=== PATIENT | female | born 2000 | race Caucasian/White ===

== ENCOUNTER 2020-08-12 16:45 | Emergency (ER) | payer MEDICAID, SELFPAY ==
[~2020-08-12] VITALS: Ht 172.7 cm; Wt 117.3 kg
[2020-08-12 17:53] LABS: HEMOGLOBIN 13.4 g/dl (12.0-15.5); MEAN CORPUSCULAR HEMOGLOBIN 27.6 pg (27.0-33.0); MEAN CORPUSCULAR HGB CONC 31.9 g/dl (32.0-36.5); MEAN CORPUSCULAR VOLUME 86.6 fl (80.0-96.0); PLATELET COUNT, AUTOMATED 291 10^3/uL (150-450); RED BLOOD COUNT 4.85 10^6/uL (4.00-5.40); WHITE BLOOD COUNT 9.9 10^3/uL (4.0-10.0)
[2020-08-12 18:23] LABS: AMPHETAMINES LEVEL URINE NEGATIVE (NEGATIVE); BARBITURATES URINE NEGATIVE (NEGATIVE); BENZODIAZEPINES URINE NEGATIVE (NEGATIVE); CANNABINOIDS URINE NEGATIVE (NEGATIVE); COCAINE METABOLITE URINE NEGATIVE (NEGATIVE); METHADONE URINE NEGATIVE (NEGATIVE); OPIATES URINE NEGATIVE (NEGATIVE); PHENCYCLIDINE URINE NEGATIVE (NEGATIVE)
[2020-08-12 18:24] LABS: HCG, SERUM QUALITATIVE NEGATIVE (NEGATIVE)
[2020-08-12 18:36] LABS: ACETAMINOPHEN LEVEL < 2.0 UG/ML (10.0-30.0); ALBUMIN 4.2 GM/DL (3.2-5.2); ALT/SGPT 23 U/L (12-78); BILIRUBIN,DIRECT < 0.1 MG/DL (0.0-0.2); BILIRUBIN,TOTAL 0.3 MG/DL (0.2-1.0); BLOOD UREA NITROGEN 16 MG/DL (7-18); CALCIUM LEVEL 9.1 MG/DL (8.5-10.1); CARBON DIOXIDE LEVEL 30 MEQ/L (21-32); CHLORIDE LEVEL 107 MEQ/L (98-107); CREATININE FOR GFR 1.11 MG/DL (0.55-1.30); ETHYL ALCOHOL (ETHANOL) < 0.003 % (0.000-0.010); GLUCOSE, FASTING 80 MG/DL (70-100); POTASSIUM SERUM 4.4 MEQ/L (3.5-5.1); SALICYLATE LEVEL < 1.7 MG/DL (5.0-30.0); SODIUM LEVEL 142 MEQ/L (136-145); TOTAL PROTEIN 7.8 GM/DL (6.4-8.2)
--- NOTE | 2020-08-12 18:37 | ECGEPIP ---
[facility] - ED Test Date: 2020-08-12 Pat Name: ALANNA SHIPMAN Department: Room: - Gender: Female Newspaper Editor: INNA : 2000 Requested By: LIA TRAN Order Number: [id number] Reading MD: Emily Poe Measurements Intervals [place] Rate: 107 P: 65 ME: 140 QRS: 67 QRSD: 81 T: 30 QT: 316 QTc: 422 Interpretive Statements SINUS TACHYCARDIA ABNORMAL RHYTHM ECG No prior Electronically Signed on 08-12-2020 18:37:05 EST by Emily Poe
[2020-08-13 00:19] VITALS: BP 139/82
== END 2020-08-13 00:25 | disposition short-term general hospital (02) ==
LOC: M ED 16:45
DX: F32.9 Major depressive disorder, single episode, unspecified (principal); R45.851 Suicidal ideations; R00.0 Tachycardia, unspecified; R94.31 Abnormal electrocardiogram [ECG] [EKG]
CPT/HCPCS: 80048; 80076; 80307; 84443; 84703; 85027; 93005; 99284; G0480; U0002

== ENCOUNTER → 2020-11-20 | Outpatient (REF) | LOC: M EMPSKH 08:15 | PROVIDERS: ATTEND Family Medicine | DX: Z20.822 Contact with and (suspected) exposure to COVID-19 (principal) ==

== ENCOUNTER → 2022-04-18 | Outpatient (REF) | LOC: M EMP 08:01 | PROVIDERS: ATTEND Family Medicine | DX: Z11.52 Encounter for screening for COVID-19 (principal) ==

== ENCOUNTER → 2022-09-05 | Outpatient (REF) ==
[2022-09-05 15:52] LABS: RSV AMPLIFICATION NEGATIVE (NEGATIVE)
== END ==
LOC: M EMP 13:25
PROVIDERS: ATTEND Family Medicine
DX: Z20.818 Contact with and (suspected) exposure to other bacterial communicable diseases (principal)

== ENCOUNTER 2023-12-14 15:06 | Emergency (ER) | payer OTHER, SELFPAY ==
[~2023-12-14] VITALS: Ht 172.7 cm; Wt 84.3 kg
[2023-12-14] MEDS: KETOROLAC 60MG 2ML VIAL IM ONE (16:44)
[2023-12-14] MEDS ORDERED: IBUP-1022 PO (16:58)
[2023-12-14 17:09] VITALS: BP 123/79; TEMP 97.9; O2SAT 99
== END 2023-12-14 17:18 | disposition home or self-care (01) ==
LOC: M ED 15:06
DX: S23.41XA Sprain of ribs, initial encounter (principal); X50.9XXA Other and unspecified overexertion or strenuous movements or postures, initial encounter; Y92.129 Unspecified place in nursing home as the place of occurrence of the external cause; Y93.89 Activity, other specified; Y99.0 Civilian activity done for income or pay; K21.9 Gastro-esophageal reflux disease without esophagitis; F17.290 Nicotine dependence, other tobacco product, uncomplicated
CPT/HCPCS: 71101; 96372; 99283; J1885

== ENCOUNTER 2023-12-23 09:45 | Emergency (ER) | payer OTHER, SELFPAY ==
[~2023-12-23] VITALS: Ht 172.7 cm; Wt 86.8 kg
[~2023-12-23 09:45] MED LIST: IBUP-1022 PO
[2023-12-23] MEDS ORDERED: CYCL-707 PO (14:23)
[2023-12-23] MEDS ORDERED: PRED20TA PO (14:23)
[2023-12-23 15:05] VITALS: BP 126/78; TEMP 97.8; O2SAT 100
== END 2023-12-23 15:06 | disposition home or self-care (01) ==
LOC: M ED 14:02
DX: S23.41XA Sprain of ribs, initial encounter (principal); K21.9 Gastro-esophageal reflux disease without esophagitis; Z79.1 Long term (current) use of non-steroidal anti-inflammatories (NSAID); Z79.52 Long term (current) use of systemic steroids; Y92.9 Unspecified place or not applicable; Y93.9 Activity, unspecified; Y99.9 Unspecified external cause status

== ENCOUNTER 2023-12-25 16:50 | Emergency (ER) | payer OTHER ==
[~2023-12-25] VITALS: Ht 172.7 cm; Wt 88.5 kg
[~2023-12-25 16:50] MED LIST changes: +CYCL-707 PO; +PRED20TA PO
[2023-12-25 16:51] VITALS: BP 143/85; TEMP 99.8; O2SAT 99
[2023-12-25 17:56] LABS: BASO % 0.3 % (0.0-1.0); EOS # 0.1 10^3/uL (0.0-0.5); HEMATOCRIT 35.7 % (36.0-47.0); HEMOGLOBIN 11.8 g/dl (12.0-15.5); LYMPH # 1.4 10^3/uL (1.5-5.0); LYMPH % 14.7 % (24.0-44.0); MEAN CORPUSCULAR HEMOGLOBIN 29.2 pg (27.0-33.0); MEAN CORPUSCULAR HGB CONC 33.1 g/dl (32.0-36.5); MEAN CORPUSCULAR VOLUME 88.4 fl (80.0-96.0); MONO # 0.5 10^3/uL (0.0-0.8); MONO % 5.1 % (2.0-8.0); NEUTROPHILS # 7.3 10^3/uL (1.5-8.5); NEUTROPHILS % 78.7 % (36.0-66.0); PLATELET COUNT, AUTOMATED 203 10^3/uL (150-450); RED BLOOD COUNT 4.04 10^6/uL (4.00-5.40); WHITE BLOOD COUNT 9.3 10^3/uL (4.0-10.0)
[2023-12-25 18:26] LABS: LIPASE 28 U/L (12-53)
[2023-12-25 18:28] LABS: ALBUMIN 3.5 G/DL (3.2-5.2); ALKALINE PHOSPHATASE 56 U/L (46-116); ALT/SGPT 21 U/L (7.0-40); AST/SGOT 13 U/L (<34); BILIRUBIN,DIRECT 0.1 MG/DL (<0.4); BILIRUBIN,TOTAL 0.3 MG/DL (0.3-1.2); BLOOD UREA NITROGEN 16 MG/DL (9-23); CARBON DIOXIDE LEVEL 26 MMOL/L (20-31); CHLORIDE LEVEL 111 MMOL/L (98-107); CPK CREATINE PHOSPHOKINASE 62 U/L (34-145); CREATININE FOR GFR 0.77 MG/DL (0.55-1.30); GLOMERULAR FILTRATION RATE > 60.0 (>60); GLUCOSE, FASTING 93 MG/DL (60-100); SODIUM LEVEL 144 MMOL/L (136-145); TOTAL PROTEIN 6.3 G/DL (5.7-8.2)
[2023-12-25 18:29] LABS: CK-MB VALUE MASS < 1.0 NG/ML (<3.6); MB/CK RELATIVE INDEX 1.61 (< OR =4)
[2023-12-25 18:32] LABS: HCG, SERUM QUALITATIVE NEGATIVE (NEGATIVE)
[2023-12-25] MEDS: HYOSCYAMINE SULFATE 0.125 MG SUBL TABLET PO ONE (21:17)
[2023-12-25] MEDS: MAALOX 30 ML SUSP *UDC PO ONE (21:18)
[2023-12-25] MEDS ORDERED: OMEP40CA4 PO (22:16)
== END 2023-12-25 22:29 | disposition home or self-care (01) ==
LOC: M ED 16:50
DX: R10.10 Upper abdominal pain, unspecified (principal); K21.9 Gastro-esophageal reflux disease without esophagitis; F17.200 Nicotine dependence, unspecified, uncomplicated; Z79.83 Long term (current) use of bisphosphonates; Z79.52 Long term (current) use of systemic steroids; Z79.891 Long term (current) use of opiate analgesic; Z79.1 Long term (current) use of non-steroidal anti-inflammatories (NSAID)

== ENCOUNTER 2024-02-15 17:48 | Emergency (ER) | payer OTHER ==
[~2024-02-15] VITALS: Ht 172.7 cm; Wt 89.7 kg
[~2024-02-15 17:48] MED LIST changes: +OMEP40CA4 PO
[2024-02-15] MEDS ORDERED: PANT20TA6 (18:08)
[2024-02-15] MEDS: ACETAMINOPHEN *IV* 1,000 MG in IV 1 EA IV ONE (19:30)
[2024-02-15 19:58] LABS: BASO # 0.1 10^3/uL (0.0-0.2); BASO % 0.5 % (0.0-1.0); EOS # 0.2 10^3/uL (0.0-0.5); HEMATOCRIT 35.8 % (36.0-47.0); HEMOGLOBIN 11.7 g/dl (12.0-15.5); LYMPH % 31.5 % (24.0-44.0); MEAN CORPUSCULAR HGB CONC 32.7 g/dl (32.0-36.5); MEAN CORPUSCULAR VOLUME 88.8 fl (80.0-96.0); MONO # 0.6 10^3/uL (0.0-0.8); NEUTROPHILS # 5.7 10^3/uL (1.5-8.5); NEUTROPHILS % 59.8 % (36.0-66.0); PLATELET COUNT, AUTOMATED 231 10^3/uL (150-450); RED BLOOD COUNT 4.03 10^6/uL (4.00-5.40); WHITE BLOOD COUNT 9.5 10^3/uL (4.0-10.0)
[2024-02-15 20:22] LABS: CK-MB VALUE MASS < 1.0 NG/ML (<3.6)
[2024-02-15 20:23] LABS: LIPASE 29 U/L (12-53)
[2024-02-15 20:25] LABS: ALBUMIN 3.5 G/DL (3.2-5.2); ALKALINE PHOSPHATASE 52 U/L (46-116); ALT/SGPT 14 U/L (7.0-40); AST/SGOT 11 U/L (<34); BILIRUBIN,DIRECT < 0.1 MG/DL (<0.4); BILIRUBIN,TOTAL 0.2 MG/DL (0.3-1.2); TOTAL PROTEIN 6.2 G/DL (5.7-8.2)
[2024-02-15 20:26] LABS: CPK CREATINE PHOSPHOKINASE 69 U/L (34-145); MB/CK RELATIVE INDEX 1.44 (< OR =4)
[2024-02-15 21:03] LABS: APPEARANCE, URINE HAZY (CLEAR); BACTERIA, URINE AUTO NEGATIVE (NEGATIVE); BILIRUBIN, URINE AUTO NEGATIVE (NEGATIVE); BLOOD, URINE BLOOD NEGATIVE (NEGATIVE); COLOR, URINE YELLOW (YELLOW); GLUCOSE, URINE (UA) AUTO NEGATIVE (NEGATIVE); KETONE, URINE AUTO NEGATIVE (NEGATIVE); LEUKOCYTE ESTERASE, URINE AUTO NEGATIVE (NEGATIVE); MUCUS, URINE SMALL (NEGATIVE); NITRITE, URINE AUTO NEGATIVE (NEGATIVE); PROTEIN, URINE AUTO NEGATIVE (NEGATIVE); RBC, URINE AUTO 0 /HPF (0-3); SPECIFIC GRAVITY URINE AUTO 1.027 (1.002-1.035); SQUAMOUS EPITHELIAL CELL UR AU 2 /HPF (0-6); WBC, URINE AUTO 3 /HPF (0-3)
[2024-02-15] MEDS ORDERED: ISOVUE-370 76% 100ML VIAL As Ordered ONE (21:04)
[2024-02-15] MEDS ORDERED: MIRA3350 PO (22:43)
[2024-02-15 22:47] VITALS: BP 111/56; TEMP 98.1; O2SAT 100
== END 2024-02-15 22:50 | disposition home or self-care (01) ==
LOC: M ED 17:48
DX: R10.9 Unspecified abdominal pain (principal); K59.00 Constipation, unspecified; K21.9 Gastro-esophageal reflux disease without esophagitis; F17.210 Nicotine dependence, cigarettes, uncomplicated; F12.10 Cannabis abuse, uncomplicated; R94.31 Abnormal electrocardiogram [ECG] [EKG]; Z79.1 Long term (current) use of non-steroidal anti-inflammatories (NSAID); Z79.899 Other long term (current) drug therapy
CPT/HCPCS: 36415; 71045; 71275; 74177; 80047; 80076; 81001; 82550; 82553; 83690; 84484; 84702; 85025; 85379; 93005; 96374; 99284; J0131; Q9967

== ENCOUNTER → 2024-06-17 | Outpatient (REF) | payer OTHER ==
[~2024-06-17] MED LIST changes: +MIRA3350 PO; +PANT20TA6
[2024-06-17 17:39] LABS: BASO % 0.3 % (0.0-1.0); EOS # 0.1 10^3/uL (0.0-0.5); EOS % 0.8 % (0.0-3.0); HEMATOCRIT 40.5 % (36.0-47.0); HEMOGLOBIN 13.1 g/dl (12.0-15.5); LYMPH # 4.1 10^3/uL (1.5-5.0); LYMPH % 47.6 % (24.0-44.0); MEAN CORPUSCULAR HEMOGLOBIN 28.9 pg (27.0-33.0); MEAN CORPUSCULAR HGB CONC 32.3 g/dl (32.0-36.5); MEAN CORPUSCULAR VOLUME 89.2 fl (80.0-96.0); MONO # 0.6 10^3/uL (0.0-0.8); MONO % 7.4 % (2.0-8.0); NEUTROPHILS # 3.8 10^3/uL (1.5-8.5); NEUTROPHILS % 43.7 % (36.0-66.0); PLATELET COUNT, AUTOMATED 187 10^3/uL (150-450); RED BLOOD COUNT 4.54 10^6/uL (4.00-5.40); WHITE BLOOD COUNT 8.6 10^3/uL (4.0-10.0)
[2024-06-17 18:03] LABS: ALBUMIN 4.1 G/DL (3.2-5.2); ALKALINE PHOSPHATASE 62 U/L (46-116); ALT/SGPT 14 U/L (7.0-40); AST/SGOT < 8 U/L (<34); BILIRUBIN,TOTAL 0.5 MG/DL (0.3-1.2); BLOOD UREA NITROGEN 16 MG/DL (9-23); CALCIUM LEVEL 9.7 MG/DL (8.5-10.1); CARBON DIOXIDE LEVEL 29 MMOL/L (20-31); CHLORIDE LEVEL 105 MMOL/L (98-107); CHOLESTEROL LEVEL 120 MG/DL (<200); CHOLESTEROL RISK RATIO 2.48 (<5); CREATININE FOR GFR 0.84 MG/DL (0.55-1.30); GLOMERULAR FILTRATION RATE > 60.0 (>60); GLUCOSE, FASTING 80 MG/DL (60-100); HDL CHOLESTEROL 48.2 MG/DL (>40); LDL CHOLESTEROL 55.2 MG/DL (<100); MAGNESIUM LEVEL 1.8 MG/DL (1.8-2.4); NON-HDL-C 71.8 MG/DL; POTASSIUM SERUM 5.1 MMOL/L (3.5-5.1); SODIUM LEVEL 139 MMOL/L (136-145); THYROID STIMULATING HORMONE 7.935 uIU/ML (0.55-4.78); TOTAL 25(OH) VITAMIN D 18.9 NG/ML (20.0-100.0); TOTAL PROTEIN 7.2 G/DL (5.7-8.2); TRIGLYCERIDES LEVEL 83 MG/DL (<150)
[2024-06-17 18:58] LABS: HEMOGLOBIN A1c 4.9 % (4.0-6.0)
== END ==
LOC: M LAB REF 16:19
PROVIDERS: ATTEND Nurse Practitioner Family
DX: E66.3 Overweight (principal); E55.9 Vitamin D deficiency, unspecified

== ENCOUNTER → 2024-07-27 | Outpatient (REF) | payer OTHER ==
[2024-07-27 14:29] LABS: THYROID STIMULATING HORMONE 3.566 uIU/ML (0.55-4.78)
[2024-07-27 14:30] LABS: FREE T4 1.01 NG/DL (0.89-1.76)
== END ==
LOC: M LAB REF 13:46
PROVIDERS: ATTEND Nurse Practitioner Family
DX: R94.6 Abnormal results of thyroid function studies (principal)

== ENCOUNTER 2025-01-01 18:19 | Emergency (ER) | payer OTHER ==
[~2025-01-01] VITALS: Ht 172.7 cm; Wt 89.2 kg
[2025-01-01] MEDS ORDERED: LEXA1TAB2 (19:11)
[2025-01-01] MEDS ORDERED: VITA200032 (19:11)
[2025-01-01] MEDS ORDERED: MUCI600T31 PO (19:38)
[2025-01-01] MEDS ORDERED: FLON1SPR NARES (19:38)
[2025-01-01] MEDS ORDERED: PRED20TA PO (19:38)
[2025-01-01] MEDS ORDERED: KETOROLAC 30 MG/ML 1ML VIAL IV ONE (20:00)
[2025-01-01] MEDS: KETOROLAC 30 MG/ML 1ML VIAL IM ONE (20:03)
[2025-01-01] MEDS: ACETAMINOPHEN 500 MG TAB PO ONE (20:03)
[2025-01-01 20:20] VITALS: BP 125/88; TEMP 98.1; O2SAT 100
== END 2025-01-01 20:24 | disposition home or self-care (01) ==
LOC: M ED 18:19
DX: J01.10 Acute frontal sinusitis, unspecified (principal); F32.A Depression, unspecified; F41.9 Anxiety disorder, unspecified; F17.200 Nicotine dependence, unspecified, uncomplicated; Z79.899 Other long term (current) drug therapy

== ENCOUNTER → 2025-07-06 | Outpatient (CLI) | payer OTHER ==
[~2025-07-06] MED LIST changes: +FLON1SPR NARES; -IBUP-1022 PO; +IBUP600T42 PO; +LEXA1TAB2; +MUCI600T31 PO; +VITA200032
[2025-07-06 16:11] LABS: BASO # 0.0 10^3/uL (0.0-0.2); BASO % 0.6 % (0.0-1.0); EOS # 0.2 10^3/uL (0.0-0.5); EOS % 2.7 % (0.0-3.0); LYMPH # 2.1 10^3/uL (1.5-5.0); LYMPH % 32.9 % (24.0-44.0); MONO # 0.4 10^3/uL (0.0-0.8); MONO % 5.9 % (2.0-8.0); NEUTROPHILS # 3.6 10^3/uL (1.5-8.5); NEUTROPHILS % 57.6 % (36.0-66.0); PLATELET COUNT, AUTOMATED 248 10^3/uL (150-450)
[2025-07-06 16:37] LABS: ALT/SGPT 14 U/L (7.0-40); AST/SGOT 14 U/L (<34); CALCIUM LEVEL 9.0 MG/DL (8.5-10.1); CARBON DIOXIDE LEVEL 28 MMOL/L (20-31); CHLORIDE LEVEL 107 MMOL/L (98-107); CHOLESTEROL LEVEL 138 MG/DL (<200); CHOLESTEROL RISK RATIO 2.42 (<5); CREATININE FOR GFR 0.80 MG/DL (0.55-1.30); GLOMERULAR FILTRATION RATE > 90.0 (>60); LDL CHOLESTEROL 74.2 MG/DL (<100); NON-HDL-C 81.0 MG/DL; POTASSIUM SERUM 4.1 MMOL/L (3.5-5.1); SODIUM LEVEL 142 MMOL/L (136-145); TRIGLYCERIDES LEVEL 34 MG/DL (<150)
[2025-07-06 16:40] LABS: TOTAL 25(OH) VITAMIN D 23.3 NG/ML (20.0-100.0)
[2025-07-06 17:51] LABS: ESTIMATED AVERAGE GLUCOSE 97.0 MG/DL (60-110)
== END ==
LOC: M RAD 14:30
PROVIDERS: ATTEND Student in an Organized Health Care Education/Training Program
DX: R22.1 Localized swelling, mass and lump, neck (principal); E55.9 Vitamin D deficiency, unspecified; Z68.32 Body mass index [BMI] 32.0-32.9, adult

== ENCOUNTER 2025-07-29 17:30 | Emergency (ER) | payer OTHER ==
[~2025-07-29] VITALS: Ht 175.3 cm; Wt 90.9 kg
[2025-07-29 17:32] VITALS: TEMP 98.8
[2025-07-29] MEDS ORDERED: SERT25TA21 (17:37)
[2025-07-29 18:16] LABS: BASO # 0.0 10^3/uL (0.0-0.2); BASO % 0.4 % (0.0-1.0); EOS # 0.2 10^3/uL (0.0-0.5); EOS % 3.0 % (0.0-3.0); LYMPH # 2.2 10^3/uL (1.5-5.0); LYMPH % 29.3 % (24.0-44.0); MONO # 0.5 10^3/uL (0.0-0.8); MONO % 6.0 % (2.0-8.0); NEUTROPHILS # 4.7 10^3/uL (1.5-8.5); NEUTROPHILS % 60.9 % (36.0-66.0); PLATELET COUNT, AUTOMATED 225 10^3/uL (150-450)
[2025-07-29 18:28] LABS: KETONE, URINE AUTO RFX NEGATIVE (NEGATIVE); LEUKOCYTE ESTERASE UR AUTO RFX NEGATIVE (NEGATIVE); MUCUS, URINE RFX SMALL (NEGATIVE); NITRITE, URINE AUTO RFX NEGATIVE (NEGATIVE); RBC, URINE AUTO RFX 0 /HPF (0-3); SQUAM EPITHELIAL CELL UR AURFX 5 /HPF (0-6); WBC, URINE AUTO RFX 1 /HPF (0-3)
[2025-07-29 18:40] LABS: ALT/SGPT 17 U/L (7.0-40); AST/SGOT 17 U/L (<34); CALCIUM LEVEL 8.9 MG/DL (8.5-10.1); CARBON DIOXIDE LEVEL 31 MMOL/L (20-31); CHLORIDE LEVEL 103 MMOL/L (98-107); CREATININE FOR GFR 0.84 MG/DL (0.55-1.30); GLOMERULAR FILTRATION RATE > 90.0 (>60); POTASSIUM SERUM 4.8 MMOL/L (3.5-5.1); SODIUM LEVEL 139 MMOL/L (136-145)
[2025-07-29 18:43] LABS: HCG, SERUM QUALITATIVE NEGATIVE (NEGATIVE)
[2025-07-29] MEDS ORDERED: ISOVUE-370 76% 100 ML VIAL As Ordered ONE (20:39)
[2025-07-29] MEDS: NS 500 ML IV ONE (21:02)
[2025-07-29] MEDS: ONDANSETRON 4MG/2ML VIAL IV ONE (21:02)
[2025-07-29] MEDS: KETOROLAC 30 MG/ML 1 ML VIAL IV ONE (21:02)
[2025-07-29 21:43] LABS: Trichomonas vaginalis (AMP) NOT DETECTED (NEGATIVE)
[2025-07-29 22:07] LABS: GC DNA AMPLIFICATION NEGATIVE (NEGATIVE)
[2025-07-29] MEDS ORDERED: NAPR-837 PO (22:34)
[2025-07-29 22:45] VITALS: O2SAT 99
[2025-07-29 22:53] VITALS: BP 111/58
== END 2025-07-29 22:56 | disposition home or self-care (01) ==
LOC: M ED 17:30
DX: R10.32 Left lower quadrant pain (principal); F32.9 Major depressive disorder, single episode, unspecified; F41.1 Generalized anxiety disorder; Z79.1 Long term (current) use of non-steroidal anti-inflammatories (NSAID); Z79.899 Other long term (current) drug therapy
CPT/HCPCS: 74177; 80048; 80076; 81001; 83690; 84703; 85025; 87210; 87661; 87810; 87850; 96361; 96374; 99284; J1885; J2405; Q9967

== ENCOUNTER → 2025-08-17 | Outpatient (REF) | payer OTHER ==
[~2025-08-17] MED LIST changes: +NAPR-837 PO; +SERT25TA21
== END ==
LOC: M LAB REF 21:35
PROVIDERS: ATTEND Physician Assistant
DX: B34.9 Viral infection, unspecified (principal)

== ENCOUNTER → 2025-09-12 | Outpatient (CLI) | payer OTHER ==
[2025-09-12 08:28] VITALS: TEMP 97.6
[2025-09-12 09:48] VITALS: BP 149/85; O2SAT 100
[2025-09-12] MEDS: LIDOCAINE 1% MDV 20 ML VIAL SC SCH (10:16)
== END ==
LOC: M IRPRO 08:09
PROVIDERS: ATTEND Student in an Organized Health Care Education/Training Program
DX: R22.1 Localized swelling, mass and lump, neck (principal)